=== PATIENT | female | born 1970 ===

== ENCOUNTER 2021-01-25 18:02 | Outpatient (CLI) | payer BC ==
[~2021-01-25 18:02] MED LIST: HYDR200T84 PO; HYOS0.1275 PO; IBUP-1984 PO; LEVO175T2 PO
[2021-01-25 18:38] LABS: ALANINE AMINOTRANSFERASE 31 U/L (12-78); ALBUMIN 2.7 G/DL (3.4-5.0); ALBUMIN/GLOBULIN RATIO 0.6 (1.1-1.5); ALKALINE PHOSPHATASE 63 IU/L (46-116); ANION GAP 7 (8-16); ASPARTATE AMINO TRANSFERASE 26 U/L (10-37); BILIRUBIN,TOTAL 0.1 MG/DL (0.1-1.0); BLOOD UREA NITROGEN 14 MG/DL (7-18); BUN/CREATININE RATIO 18.4 (6.6-38.0); CALCIUM 8.6 MG/DL (8.5-10.1); CHLORIDE 104 MMOL/L (99-107); CREATININE 0.76 MG/DL (0.40-0.90); POTASSIUM 3.7 MMOL/L (3.5-5.1); SODIUM 142 MMOL/L (135-145); TOTAL CARBON DIOXIDE 31.3 MMOL/L (24-32); TOTAL PROTEIN 7.1 G/DL (6.4-8.2); eGFR 80 ML/MIN
[2021-01-25 18:40] LABS: GLUCOSE 93 MG/DL (70-104)
== END 2021-01-25 23:59 | disposition home or self-care (01) ==
LOC: LAB SPEC 18:02
DX: J47.1 Bronchiectasis with (acute) exacerbation (principal); A31.0 Pulmonary mycobacterial infection; R62.7 Adult failure to thrive
CPT/HCPCS: 36415; 80053

== ENCOUNTER 2021-02-01 17:42 | Outpatient (CLI) | payer BC ==
[2021-02-01 18:13] LABS: ALANINE AMINOTRANSFERASE 24 U/L (12-78); ALBUMIN 2.6 G/DL (3.4-5.0); ALBUMIN/GLOBULIN RATIO 0.6 (1.1-1.5); ALKALINE PHOSPHATASE 59 IU/L (46-116); ANION GAP 6 (8-16); ASPARTATE AMINO TRANSFERASE 24 U/L (10-37); BILIRUBIN,TOTAL 0.1 MG/DL (0.1-1.0); BLOOD UREA NITROGEN 18 MG/DL (7-18); BUN/CREATININE RATIO 22.5 (6.6-38.0); CALCIUM 8.4 MG/DL (8.5-10.1); CHLORIDE 103 MMOL/L (99-107); POTASSIUM 4.4 MMOL/L (3.5-5.1); SODIUM 143 MMOL/L (135-145); TOTAL CARBON DIOXIDE 33.7 MMOL/L (24-32); TOTAL PROTEIN 7.1 G/DL (6.4-8.2); eGFR 76 ML/MIN
[2021-02-01 18:14] LABS: GLUCOSE 77 MG/DL (70-104)
== END 2021-02-01 23:59 | disposition home or self-care (01) ==
LOC: LAB SPEC 17:42
DX: J47.1 Bronchiectasis with (acute) exacerbation (principal); A31.0 Pulmonary mycobacterial infection; R62.7 Adult failure to thrive
CPT/HCPCS: 36415; 80053